=== PATIENT | female | born 1970 | race Caucasian/White ===

== ENCOUNTER 2025-08-17 09:35 | Day surgery (SDC) | payer BC ==
[~2025-08-17] VITALS: Ht 157.5 cm; Wt 71.1 kg
[~2025-08-17 09:35] MED LIST: FAMO40TA3 PO; KETOROLAC 30 MG/ML 1 ML VIAL As Ordered ONE; LIDOCAINE 2% 100 MG/5 ML SDV (FOR ANES.) As Ordered ONE; MEDR1TAB2 PO; META28.32 PO; METO1TAB7 PO; MULTTAB61 PO; ONDANSETRON 4MG 2ML VIAL As Ordered ONE; ZOLP5TAB9 PO; [UNRECOGNIZED DRUG - CODE] PO; dexAMETHasone 4 MG/ML 1 ML VIAL As Ordered ONE
[2025-08-17] MEDS ORDERED: LR 1,000 ML IV SCH ×2 (10:10→12:15)
[2025-08-17 10:14] LABS: PLATELET COUNT, AUTOMATED 282 10^3/uL (150-450)
[2025-08-17] MEDS ORDERED: MIDAZOLAM INJ 2 MG/2 ML VIAL As Ordered ONE (10:57)
[2025-08-17] MEDS ORDERED: ACETAMINOPHEN 1000MG/100ML IV BAG As Ordered ONE (11:49)
[2025-08-17] MEDS ORDERED: ONDANSETRON 4MG 2ML VIAL IV PRN (12:15)
[2025-08-17] MEDS ORDERED: HYDROMORPHONE HCL 0.5 MG/0.5 ML SYRINGE IV PRN (12:15)
[2025-08-17 13:59] VITALS: BP 129/76; TEMP 97.2; O2SAT 100
== END 2025-08-17 14:01 | disposition home or self-care (01) ==
LOC: M SDC 09:35
PROVIDERS: ATTEND Specialist
DX: N95.0 Postmenopausal bleeding (principal); I10 Essential (primary) hypertension; Z79.899 Other long term (current) drug therapy; Z98.51 Tubal ligation status
CPT/HCPCS: 36415; 58558; 85027; 88305; J0131; J1100; J1885; J2250; J2405; J3010